=== PATIENT | female | born 1950 | race Caucasian/White ===

== ENCOUNTER 2018-02-07 21:56 | Emergency (ER) | payer OTHER ==
[~2018-02-07] VITALS: Ht 162.6 cm; Wt 73.6 kg
[2018-02-07 22:00] VITALS: TEMP 36.6; Ht 162.6 cm; Wt 73.6 kg
--- NOTE | 2018-02-07 22:45 | EMERGENCY ROOM VISIT NOTE ---
History Report prepared by Robyn: Colleen Perez Under the Supervision of: Dr. Ronal Alcocer D.O. First contact with patient: 22:26 Chief Complaint: EYE ASSESSMENT Stated Complaint: RT EYE PROBLEM History of Present Illness The patient is a 67 year old female who presents to the Emergency Room with complaints of persistent right eye discomfort that began about 3 days ago. She reports that she first noticed "floaters" in her right eye, followed by flashes of light today. The patient denies any recent pain in the eye, fevers, weakness , or other symptoms. She states that she had a similar episode about 5 years ago , when she was diagnosed with a vitreous tear. The patient followed up with an ship's master, who did not find any other findings. \\ Source of History: patient Onset: about 3 days Position: eye (right) Quality: other (eye discomfort) Timing: other (persistent) Associated Symptoms: No fevers, No weakness Note: Associated symptoms includes: "floaters" and flashes of light. Patient denies: pain in eye. Review of Systems See HPI for pertinent positives & negatives. A total of 10 systems reviewed and were otherwise negative. Past Medical & Surgical Medical Problems: (1) Floater, vitreous Family History Patient reports no known family medical history. No pertinent family history. Social History Smoking Status: Never Smoker Smokeless Tobacco Use: No Alcohol Use: none Drug Use: none Marital Status: Housing Status: lives with family Current/Historical Medications Scheduled Calcium (Calcium), 600 MG PO DAILY Cetirizine (Zyrtec), 10 MG PO DAILY Cholecalciferol (Vitamin D3), 2,000 UNITS PO DAILY Fish Oil ([place]-3), 1 CAP PO DAILY Lactobacillus (Probiotic), 1 CAP PO DAILY Lisinopril (Zestril), 10 MG PO DAILY Multivitamin (Multivitamin), 1 TAB PO DAILY Allergies Coded Allergies: POLLEN (Verified Allergy, Intermediate, ITCHY EYES, SNEEZING, CONGESTION, 02/07/18) Physical Exam Vital Signs Date Time Temp Pulse Resp B/P (MAP) Pulse Ox O2 Delivery O2 Flow Rate FiO2 02/08/18 00:09 60 18 179/97 98 02/07/18 22:20 64 18 207/90 98 Room Air 02/07/18 22:00 36.6 65 16 202/95 96 Room Air Right Eye Acuity: 20/40 Left Eye Acuity: 20/40 Physical Exam GENERAL: Patient is awake, alert, and in no acute distress. Patient is resting comfortably and showing no signs of anxiety EYES: The conjunctivae are clear. The pupils are round and reactive. EARS, NOSE, MOUTH AND THROAT: The nose is without any evidence of any deformity. Mucous membranes are moist tongue is midline NECK: The neck is nontender and supple. RESPIRATORY: Normal respiratory effort is noted there is no evidence of wheezing rhonchi or rales CARDIOVASCULAR: Regular rate and rhythm noted there no murmurs rubs or gallops normal S1 normal S2 GASTROINTESTINAL: The abdomen is soft. Bowel sounds are present in all quadrants. Abdomen is nontender MUSCULOSKELETAL/EXTREMITIES: There is no evidence of gross deformity full range of motion is noted in the hips and shoulders SKIN: There is no obvious evidence of any rash. There are no petechiae, pallor or cyanosis noted. NEUROLOGIC: Patient is awake alert and oriented x3 strength is symmetric patellar reflexes are 2+ bilaterally Medical Decision & Procedures Medications Administered Medications (Trade) Dose Ordered Sig/Jazmine Route Start Time Stop Time Status Last Admin Dose Admin Lisinopril (Zestril Tab) 10 mg NOW ONCE PO 02/07/18 23:45 02/07/18 23:46 DC 02/07/18 23:38 10 MG ED Course 2235: The patient was evaluated in room C7. A complete history and physical examination were performed. 2345: Ordered Lisinopril 10mg PO. 0023: Upon reevaluation, the patient is feeling significantly. I discussed the results and treatment plan with her. She verbalized agreement of the treatment plan. The patient was discharged home. Medical Decision Nursing notes reviewed. Additional history is obtained from the patient's significant other. Differential diagnosis in this patient could include retinal bleeding retinal detachment trauma glaucoma central nervous system lesion vitreous bleeding and other differential diagnoses were considered. The patient is a 67-year-old female who presented to the emergency department for an evaluation of floaters and flashing lights in her right eye. The patient has had similar episodes in the past with vitreous bleeding. The patient did not have any focal neurologic deficits. The patient is not currently taking blood thinners. The patient's intraocular pressure was were normal. Her right eye was 13 her left eye was 12. I discussed her case with the on-call ship's master. At this time they recommended a follow-up in the morning for formal dilation and funduscopic examination. The patient was encouraged to rest and avoid any strenuous activity. She was given her usual nighttime blood pressure medication. She was also encouraged to return to the emergency department immediately if symptoms change worsen or the need arises. Medication Reconcilliation Current Medication List: was personally reviewed by me Blood Pressure Screening Patient's blood pressure: Elevated blood pressure Blood pressure disposition: Elevated BP felt to be situational Impression Primary Impression: Floaters Scribe Attestation The scribe's documentation has been prepared under my direction and personally reviewed by me in its entirety. I confirm that the note above accurately reflects all work, treatment, procedures, and medical decision making performed by me. Departure Information Dispostion Home / Self-Care Referrals No Doctor, Assigned (PCP) Forms HOME CARE DOCUMENTATION FORM, IMPORTANT VISIT INFORMATION, WORK / SCHOOL INSTRUCTIONS Patient Instructions My [facility] Additional Instructions Call the ship's master in the morning after 8:30 AM to schedule a follow-up appointment for tomorrow. Avoid any strenuous activity or heavy lifting. Continue all medications as prescribed. Return to the emergency department immediately if symptoms change worsen or the need arises. Problem Qualifiers Primary Impression: Floaters Laterality: right Qualified Codes: H43.391 - Other vitreous opacities, right eye
[2018-02-07] MEDS ORDERED: LISI-461 PO (23:05)
[2018-02-07] MEDS ORDERED: LACT1CAP6 PO (23:05)
[2018-02-07] MEDS ORDERED: CALC600T37 PO (23:05)
[2018-02-07] MEDS ORDERED: OMEG10007 PO (23:05)
[2018-02-07] MEDS ORDERED: MULT-506 PO (23:05)
[2018-02-07] MEDS ORDERED: CHOL2000 PO (23:05)
[2018-02-07] MEDS ORDERED: CETI10TA84 PO (23:05)
[2018-02-07] MEDS ORDERED: LISINOPRIL 5 MG TAB PO ONE (23:45)
[2018-02-08 00:09] VITALS: BP 179/97; PULSE 60; O2SAT 98
== END 2018-02-08 00:09 | disposition home or self-care (01) ==
LOC: C.EDB 21:58 → C.EDC 02-08 00:09
DX: H43.391 Other vitreous opacities, right eye (principal); Z91.09 Other allergy status, other than to drugs and biological substances